=== PATIENT | female | born 1955 | race Caucasian/White ===

== ENCOUNTER 2023-12-02 07:00 | Day surgery (SDC) | payer MEDICARE, OTHER ==
[~2023-12-02 07:00] MED LIST: Bupivacaine 0.25% 10 ML SDV ONE; Sodium Chloride 0.9% 10 ML Syringe FLUSH PRN; Sodium Chloride 0.9% 10 ML Syringe FLUSH SCH
[2023-12-02] MEDS: Lactated Ringers 1,000 ML IV SCH (07:15)
[2023-12-02] MEDS ORDERED: HYDROmorphone 0.5 MG/0.5 ML Syringe IVPUSH PRN (07:19)
[2023-12-02] MEDS ORDERED: Ondansetron 4 MG/2 ML SDV IVPUSH PRN (07:19)
[2023-12-02] MEDS ORDERED: fentaNYL 100 MCG/2 ML SDV IVPUSH PRN (07:19)
[2023-12-02] MEDS ORDERED: Midazolam 1 MG/ML 2 ML SDV ONE (07:22)
[2023-12-02] MEDS ORDERED: Lidocaine 2% 5 ML SDV ONE (07:22)
[2023-12-02] MEDS ORDERED: Ondansetron 4 MG/2 ML SDV ONE (07:22)
[2023-12-02] MEDS ORDERED: fentaNYL 100 MCG/2 ML SDV ONE (07:22)
[2023-12-02] MEDS ORDERED: Propofol 200 MG/20 ML SDV ONE (07:22)
[2023-12-02] MEDS ORDERED: Dexamethasone 4 MG/ML 5 ML MDV ONE (07:25)
[2023-12-02] MEDS ORDERED: Ropivacaine 0.5% 5 MG/ML 30 ML SDV ONE (07:28)
[2023-12-02] MEDS ORDERED: ceFAZolin 2 GM Vial ONE (08:33)
[2023-12-02] MEDS: EPINEPHrine 1 MG/ML SDV ONE (08:48)
== END 2023-12-02 11:40 | disposition home or self-care (01) ==
LOC: JD.SDS 07:00
PROVIDERS: ATTEND Orthopaedic Surgery
DX: S43.402A Unspecified sprain of left shoulder joint, initial encounter (principal); M25.812 Other specified joint disorders, left shoulder; E78.00 Pure hypercholesterolemia, unspecified; G47.33 Obstructive sleep apnea (adult) (pediatric); Z79.899 Other long term (current) drug therapy; Z88.2 Allergy status to sulfonamides; Z88.1 Allergy status to other antibiotic agents; Z88.5 Allergy status to narcotic agent
CPT/HCPCS: 29806; 29823; C1713; J0171; J0690; J1100; J2250; J2405; J2704; J2795; J3010; J3490; J7120; 01630; 64415